=== PATIENT | female | born 1980 | race African-American/Black ===

== ENCOUNTER 2023-10-01 22:31 | Emergency (ER) | payer OTHER ==
[2023-10-01 22:40] VITALS: BP 124/86; PULSE 88; RESP 14; TEMP 98.4; BMI 32.5
[2023-10-02] MEDS ORDERED: HYOSCYAMINE SULFATE 0.125 MG TABLET PO STA (00:05)
[2023-10-02 01:17] LABS: HEMATOCRIT 40.9 % (32.4-45.2); HEMOGLOBIN 14.1 GM/dL (10.7-15.3); MCHC 34.6 g/dl (32.0-36.0); MEAN CELL VOLUME 86.7 fl (80-96); MEAN PLT VOLUME 7.3 fl (7.5-11.1); PLATELET COUNT 366 10^3/uL (134-434); RBC 4.72 M/mm3 (3.60-5.2); RDW 13.7 % (11.6-15.6); WHITE BLOOD COUNT 9.3 K/mm3 (4.0-10.0)
[2023-10-02 01:23] LABS: HCG,QUALITATIVE URINE Negative
[2023-10-02 01:24] LABS: EPI CELLS 7 /uL (0-25.1); HYALINE CASTS 1 /uL (0-3.1); PH,URINE 5.5 (5.0-8.0); URINE APPEARANCE CLEAR; URINE BACTERIA 46 /uL (0-1359); URINE BILIRUBIN NEGATIVE (NEGATIVE); URINE COLOR YELLOW; URINE GLUCOSE (UA) NEGATIVE (NEGATIVE); URINE KETONE 1+ (NEGATIVE); URINE LEUK ESTERASE TRACE (NEGATIVE); URINE NITRITE NEGATIVE (NEGATIVE); URINE PROTEIN NEGATIVE (NEGATIVE); URINE RBC 30 /uL (0-23.9); URINE WBC 29 /uL (0-25.8)
[2023-10-02] MEDS ORDERED: KETOROLAC TROMETHAMINE 30 MG/1 ML VIAL IVPUSH ONE (01:25)
[2023-10-02 01:45] LABS: POTASSIUM 3.5 mmol/L (3.5-5.1)
[2023-10-02 01:47] LABS: ALBUMIN 3.8 g/dl (3.4-5.0); CALCIUM 9.1 mg/dL (8.5-10.1)
[2023-10-02 01:48] LABS: BLOOD UREA NITROGEN 10.6 mg/dL (7-18)
[2023-10-02 01:51] LABS: CREATININE 0.6 mg/dL (0.55-1.3)
[2023-10-02 01:52] LABS: BILIRUBIN,TOTAL 0.6 mg/dL (0.2-1); TOT PROT 7.3 g/dl (6.4-8.2)
[2023-10-02] MEDS ORDERED: KETOROLAC TROMETHAMINE 30 MG/1 ML VIAL ONE (01:54)
[2023-10-02] MEDS ORDERED: PANTOPRAZOLE SODIUM 40 MG VIAL IVPUSH ONE (02:02)
[2023-10-02] MEDS ORDERED: PANTOPRAZOLE SODIUM 40 MG VIAL ONE (02:03)
[2023-10-02 03:45] LABS: YEAST FEW (NEGATIVE)
== END 2023-10-02 02:56 | disposition home or self-care (01) ==
LOC: FER 22:31
PROC: 3E0333Z Introduction of Anti-inflammatory into Peripheral Vein, Percutaneous Approach (ICD-10-PCS; principal; 2023-10-02)
PROC: 3E033GC Introduction of Other Therapeutic Substance into Peripheral Vein, Percutaneous Approach (ICD-10-PCS; 2023-10-02)
DX: R10.9 Unspecified abdominal pain (principal); R19.7 Diarrhea, unspecified; R11.0 Nausea
CPT/HCPCS: 36415; 80053; 81003; 83690; 84703; 85027; 87086; 99284-25

== ENCOUNTER 2023-10-09 18:32 | Emergency (ER) | payer OTHER ==
[2023-10-09 18:38] VITALS: BP 113/80; PULSE 96; RESP 18; TEMP 97.6; BMI 31.8
[2023-10-09] MEDS: ONDANSETRON 4 MG/2 ML VIAL IVPUSH ONE (19:30)
[2023-10-09] MEDS ORDERED: METOCLOPRAMIDE HCL INJECTION 10 MG/2 ML VIAL ONE (19:31)
[2023-10-09] MEDS ORDERED: FAMOTIDINE 20 MG/50 ML IVPB 20 MG/50 ML MG IVPB ONE (19:32)
[2023-10-09] MEDS ORDERED: MAG HYDROX/AL HYDROX/SIMETH 30 ML UNIT-DOSE CUP ONE (19:32)
[2023-10-09] MEDS ORDERED: ACETAMINOPHEN INJECTION 100 ML IVPB ONE (19:32)
[2023-10-09] MEDS: SODIUM CHLORIDE 0.9% 500 ML INFUS.BAG IV ONE (19:58)
[2023-10-09] MEDS: ACETAMINOPHEN 1000 MG/100 ML BAG IVPB ONE (19:59)
[2023-10-09] MEDS: FAMOTIDINE 20 MG/50 ML IVPB 20 MG/50 ML MG IVPB ONE (19:59)
[2023-10-09] MEDS: MAG HYDROX/AL HYDROX/SIMETH 30 ML UNIT-DOSE CUP PO ONE (19:59)
[2023-10-09] MEDS: METOCLOPRAMIDE HCL INJECTION 10 MG/2 ML VIAL IVPB ONE (19:59)
[2023-10-09 20:01] LABS: BASO % 0.3 % (0-2.0); EOS % 7.1 % (0-4.5); HEMATOCRIT 43.6 % (32.4-45.2); HEMOGLOBIN 14.8 GM/dL (10.7-15.3); LYMPH % 23.5 % (8-40); MCH 29.4 pg (25.7-33.7); MCHC 33.9 g/dl (32.0-36.0); MEAN CELL VOLUME 86.8 fl (80-96); MEAN PLT VOLUME 6.9 fl (7.5-11.1); MONO % 8.7 % (3.8-10.2); NEUT % 60.4 % (42.8-82.8); PLATELET COUNT 380 10^3/uL (134-434); RBC 5.02 M/mm3 (3.60-5.2); RDW 13.9 % (11.6-15.6); WHITE BLOOD COUNT 8.8 K/mm3 (4.0-10.0)
[2023-10-09 20:18] LABS: POTASSIUM 4.6 mmol/L (3.5-5.1)
[2023-10-09 20:21] LABS: ALBUMIN 3.7 g/dl (3.4-5.0); BLOOD UREA NITROGEN 7.4 mg/dL (7-18)
[2023-10-09 20:25] LABS: CREATININE 0.7 mg/dL (0.55-1.3); TOT PROT 7.5 g/dl (6.4-8.2)
[2023-10-09] MEDS: CIPROFLOXACIN 500 MG TABLET (RESTRICTED TO ID) PO ONE (21:26)
== END 2023-10-09 21:27 | disposition home or self-care (01) ==
LOC: JER 18:32
PROC: 3E033GC Introduction of Other Therapeutic Substance into Peripheral Vein, Percutaneous Approach (ICD-10-PCS; principal; 2023-10-09)
PROC: 3E033GC Introduction of Other Therapeutic Substance into Peripheral Vein, Percutaneous Approach (ICD-10-PCS; 2023-10-09)
PROC: 3E033NZ Introduction of Analgesics, Hypnotics, Sedatives into Peripheral Vein, Percutaneous Approach (ICD-10-PCS; 2023-10-09)
DX: R10.9 Unspecified abdominal pain (principal); R11.2 Nausea with vomiting, unspecified; R19.7 Diarrhea, unspecified
CPT/HCPCS: 36415; 80053; 83690; 84703; 85025; 99284-25; J0131

== ENCOUNTER 2024-06-10 15:34 | Day surgery (SDC) | payer OTHER ==
[2024-06-10] MEDS ORDERED: ACETAMINOPHEN INJECTION 100 ML ONE (16:21)
[2024-06-10] MEDS ORDERED: ONDANSETRON 4 MG/2 ML VIAL ONE (16:21)
[2024-06-10] MEDS: ACETAMINOPHEN 1000 MG/100 ML BAG IVPB ONE (16:28)
[2024-06-10] MEDS: SODIUM CHLORIDE 0.9% 500 ML INFUS.BAG IV ONE (16:28)
[2024-06-10] MEDS: ONDANSETRON 4 MG/2 ML VIAL IVPUSH ONE (16:28)
[2024-06-10] MEDS ORDERED: FAMOTIDINE 20 MG/50 ML IVPB 20 MG/50 ML MG IVPB ONE (16:38)
[2024-06-10] MEDS ORDERED: MAG HYDROX/AL HYDROX/SIMETH 30 ML UNIT-DOSE CUP ONE (16:39)
[2024-06-10] MEDS: MAG HYDROX/AL HYDROX/SIMETH 30 ML UNIT-DOSE CUP PO ONE (16:42)
[2024-06-10] MEDS: FAMOTIDINE 20 MG/50 ML IVPB 20 MG/50 ML MG IVPB ONE (16:42)
[2024-06-10 16:45] LABS: HEMATOCRIT 42.6 % (32.4-45.2); HEMOGLOBIN 13.5 G/dL (10.7-15.3); MCH 29.1 pg (25.7-33.7); MCHC 31.7 g/dl (32.0-36.0); MEAN CELL VOLUME 91.6 fl (80-96); MEAN PLT VOLUME 7.1 fl (7.5-11.1); PLATELET COUNT 297.2 10^3/uL (134-434); RBC 4.65 10^6/uL (3.60-5.2); RDW 13.9 % (11.6-15.6); WHITE BLOOD COUNT 8.1 10^3/uL (4.0-10.8)
[2024-06-10 16:54] LABS: ALBUMIN 4.1 g/dl (3.4-5.0); BILIRUBIN,TOTAL 0.5 mg/dl (0.2-1); CALCIUM 9.7 mg/dl (8.5-10.1); CREATININE 0.8 mg/dl (0.6-1.3); POTASSIUM 3.9 mmol/L (3.5-5.1); TOT PROT 6.8 g/dl (6.4-8.2)
[2024-06-10 17:23] LABS: PLATELET ESTIMATE ADEQUATE
[2024-06-10] MEDS ORDERED: cefTRIAXone SODIUM 1 GM VIAL ONE (18:00)
[2024-06-10] MEDS ORDERED: CEFOXITIN SODIUM 1 GM IVPB ONE (18:01)
[2024-06-10] MEDS: CEFOXITIN SODIUM 1 GM in DEXTROSE 5%-WATER - 100 ML IVPB ONE (18:08)
[2024-06-10] MEDS ORDERED: ACETAMINOPHEN 1000 MG/100 ML BAG IVPB PRN (21:52)
[2024-06-10] MEDS ORDERED: ONDANSETRON 4 MG/2 ML VIAL IVPUSH PRN (21:53)
[2024-06-10] MEDS: CEFTRIAXONE 1,000 MG in DEXTROSE 5%-WATER - 50 ML IVPB ONE (22:16)
[2024-06-10 22:42] VITALS: BMI 31.4
[2024-06-11] MEDS: DEXTROSE 5%-0.45% SALINE 1,000 ML IV SCH ×2 (00:55→15:42)
[2024-06-11] MEDS: CEFOXITIN SODIUM 1 GM in DEXTROSE 5%-WATER - 100 ML IVPB SCH (02:54)
[2024-06-11 08:41] LABS: CALCIUM 8.8 mg/dl (8.5-10.1); CREATININE 0.6 mg/dl (0.6-1.3); POTASSIUM 3.9 mmol/L (3.5-5.1)
[2024-06-11 09:20] LABS: HEMOGLOBIN 13.8 G/dL (10.7-15.3); MCH 29.3 pg (25.7-33.7); MCHC 32.1 g/dl (32.0-36.0); MEAN CELL VOLUME 91.5 fl (80-96); MEAN PLT VOLUME 7.1 fl (7.5-11.1); PLATELET COUNT 260.9 10^3/uL (134-434); RDW 13.9 % (11.6-15.6); WHITE BLOOD COUNT 6.2 10^3/uL (4.0-10.8)
[2024-06-11] MEDS ORDERED: BUPIVACAINE HCL/PF 2.5 MG/ML - 30 ML VIAL IJ ONE (11:18)
[2024-06-11 11:48] LABS: PLATELET ESTIMATE ADEQUATE; TARGET CELLS 2+; TEAR DROP CELLS 1+
[2024-06-11] MEDS ORDERED: MIDAZOLAM HCL 2 MG/2 ML SINGLE DOSE VIAL ONE (12:47)
[2024-06-11] MEDS ORDERED: PROPOFOL 20 ML ONE (12:47)
[2024-06-11] MEDS ORDERED: ROCURONIUM BROMIDE 50 MG/5 ML SYRINGE ONE (12:47)
[2024-06-11] MEDS ORDERED: SUGAMMADEX SODIUM 200 MG/2 ML VIAL ONE ×2 (12:48→14:14)
[2024-06-11] MEDS ORDERED: ONDANSETRON 4 MG/2 ML VIAL ONE (12:48)
[2024-06-11] MEDS ORDERED: ceFAZolin SODIUM 1 GM VIAL ONE (13:31)
[2024-06-11] MEDS ORDERED: cefOXitin SODIUM 2 GM VIAL (RESTRICTED TO ID) IVPB ONE (13:35)
[2024-06-11] MEDS ORDERED: PROMETHAZINE HCL 25 MG/1 ML VIAL IVPB PRN ×2 (13:38→15:24)
[2024-06-11] MEDS ORDERED: ONDANSETRON 4 MG/2 ML VIAL IVPUSH PRN ×3 (13:38→15:24)
[2024-06-11] MEDS ORDERED: ACETAMINOPHEN INJECTION 100 ML ONE ×2 (13:40→14:28)
[2024-06-11] MEDS: BUPIVACAINE HCL/PF 0.25% (2.5MG/ML) 10 ML VIAL IJ ONE (13:46)
[2024-06-11] MEDS ORDERED: FENTANYL CITRATE/PF 50 MCG/ML VIAL ONE ×4 (14:23→14:59)
[2024-06-11] MEDS ORDERED: oxyCODONE HCL 5 MG TABLET PO PRN (15:24)
[2024-06-11] MEDS: LACTATED RINGERS SOLUTION 1,000 ML IV SCH ×2 (15:42)
[2024-06-11] MEDS ORDERED: PIPERACILLIN/TAZOB 4.5 GM 4.5 GM in DEXTROSE 5%-WATER 100 ML IVPB SCH (18:00)
[2024-06-11] MEDS: IBUPROFEN 600 MG TABLET (FP) PO PRN (18:26)
[2024-06-11 18:33] VITALS: RESP 16
[2024-06-11] MEDS: ACETAMINOPHEN 325 MG TABLET (FP) PO SCH (20:24)
[2024-06-11] MEDS: oxyCODONE HCL 5 MG TABLET PO PRN (20:25)
[2024-06-11] MEDS: SIMETHICONE 80 MG TAB.CHEW (FP) PO PRN (21:34)
[2024-06-11] MEDS: MAG HYDROX/AL HYDROX/SIMETH 30 ML UNIT-DOSE CUP PO ONE (22:17)
[2024-06-11] MEDS: ZOLPIDEM TARTRATE 5 MG TABLET PO PRN (23:02)
[2024-06-12 12:02] VITALS: BP 106/76; PULSE 78; TEMP 97.3
== END 2024-06-12 13:35 | disposition home or self-care (01) ==
LOC: FER 15:34 → FM/S 18:04 → UNDOADMIN 18:04 → FASUSAT 06-11 10:59 → FM/S 06-11 14:58 → FASUSAT 06-12 13:35
PROC: 0FT44ZZ Resection of Gallbladder, Percutaneous Endoscopic Approach (ICD-10-PCS; principal; 2024-06-11 13:40)
DX: K80.00 Calculus of gallbladder with acute cholecystitis without obstruction (principal)
CPT/HCPCS: 36415; 76705-TC; 80048; 80053; 83690; 84484; 85025; 85027; 88304-TC; 93005; 94760; 99285-25; J0131